=== PATIENT | male | born 1995 ===

== ENCOUNTER 2025-08-24 11:58 | Emergency (ER) | payer MEDICAID ==
[~2025-08-24] VITALS: Ht 162.6 cm; Wt 63.6 kg
[2025-08-24 12:12] VITALS: TEMP 97.3
[2025-08-24] MEDS ORDERED: DIVA-112 PO (12:21)
[2025-08-24] MEDS ORDERED: HALO10TA21 PO (12:21)
[2025-08-24] MEDS ORDERED: BENZ2TAB84 PO (12:21)
[2025-08-24] MEDS ORDERED: QUET25TA PO (12:21)
[2025-08-24] MEDS ORDERED: ESCI20TA87 PO (12:21)
[2025-08-24] MEDS ORDERED: TRAZ150T80 PO (12:21)
[2025-08-24] MEDS ORDERED: DOCU-385 PO (12:21)
[2025-08-24 12:57] LABS: PLATELET COUNT (AUTO) 112 K/uL (150-450); RED BLOOD CELL COUNT(AUTO) 4.24 MIL/uL (4.50-5.90); RED CELL DISTRIBUTION WIDTH 12.9 % (11.5-14.5); WHITE BLOOD COUNT (AUTO) 6.0 K/uL (4.5-11.0)
[2025-08-24 12:59] LABS: COVID AG,FIA SOURCE NASAL SWAB
[2025-08-24 13:07] LABS: CALCIUM, TOTAL 8.6 mg/dL (8.8-10.5); CREATININE 1.06 mg/dL (0.60-1.30); GLOMERULAR FILTR. RATE CALC > 60 mL/min (>60); GLUCOSE,RANDOM 82 mg/dL (70-110); SODIUM SERUM 144 mmol/L (136-145); UREA NITROGEN, BLOOD 11 mg/dL (7-18)
[2025-08-24 13:12] LABS: ASPARTATE AMINOTRANSFERASE 17.0 U/L (15-37); CREATINE KINASE, TOTAL ONLY 56.0 U/L (39-308); TOTAL PROTEIN, SERUM 6.5 g/dL (6.4-8.2)
[2025-08-24 13:14] LABS: TROPONIN I-HIGH SENSITIVITY 4 ng/L (<76)
[2025-08-24 13:24] LABS: SARS-COV2 (COVID) ANTIGEN,FIA Negative (Negative)
[2025-08-24 13:25] LABS: INFLUENZA TYPE A NEGATIVE FOR TYPE A (NEGATIVE); INFLUENZA TYPE B NEGATIVE FOR TYPE B (NEGATIVE)
[2025-08-24 14:45] VITALS: BP 111/61; PULSE 69; RESP 18; O2SAT 98
== END 2025-08-24 14:54 | disposition home or self-care (01) ==
LOC: EMS 11:58
DX: R53.1 Weakness (principal); R89.2 Abnormal level of other drugs, medicaments and biological substances in specimens from other organs, systems and tissues; Z79.899 Other long term (current) drug therapy; Z20.822 Contact with and (suspected) exposure to COVID-19; W19.XXXA Unspecified fall, initial encounter
CPT/HCPCS: 71045; 80048; 80076; 80164; 82550; 83880; 84484; 85025; 87804; 93005; 99285; 36415-L1; 36415-TC